=== PATIENT | male | born 1955 | race Caucasian/White ===

== ENCOUNTER → 2016-09-05 | Outpatient (CLI) | payer BC | END | disposition short-term general hospital (02) | LOC: CLNEUR 11:40 | DX: R20.0 Anesthesia of skin (principal); R43.8 Other disturbances of smell and taste; H91.90 Unspecified hearing loss, unspecified ear; R63.4 Abnormal weight loss; G31.9 Degenerative disease of nervous system, unspecified; J34.89 Other specified disorders of nose and nasal sinuses; K11.8 Other diseases of salivary glands; R90.89 Other abnormal findings on diagnostic imaging of central nervous system | CPT/HCPCS: A9577 ==